=== PATIENT | female | born 1960 | race Caucasian/White ===

== ENCOUNTER 2018-03-29 14:22 | Day surgery (SDC) | payer BC ==
[~2018-03-29] VITALS: Ht 172.7 cm; Wt 70.5 kg
[2018-03-29] MEDS ORDERED: TOPROL XL100 MG PO (14:45)
[2018-03-29 14:49] VITALS: BP 171/94
[2018-03-29 20:35] VITALS: BP 140/84
[2018-03-29 21:06] VITALS: BP 149/72
== END 2018-03-29 21:07 | disposition home or self-care (01) ==
LOC: SDC 14:22
PROC: 08QF3ZZ Repair Left Retina, Percutaneous Approach (ICD-10-PCS; principal; 2018-03-29)
PROC: 08B53ZZ Excision of Left Vitreous, Percutaneous Approach (ICD-10-PCS; principal; 2018-03-29)
PROC: 08NF3ZZ Release Left Retina, Percutaneous Approach (ICD-10-PCS; principal; 2018-03-29)
DX: H33.022 Retinal detachment with multiple breaks, left eye (principal); H33.42 Traction detachment of retina, left eye; I10 Essential (primary) hypertension; Z88.0 Allergy status to penicillin; Z88.1 Allergy status to other antibiotic agents
CPT/HCPCS: J0690; J2250; J3010; J3370